=== PATIENT | female | born 1965 | race Caucasian/White ===

== ENCOUNTER 2016-06-21 00:37 | Emergency (ER) | payer BC, MEDICAID ==
[2016-06-21] MEDS ORDERED: Nitroglycerin 2% Oint 1 GM UD Packet TOP ONE (00:54)
[2016-06-21] MEDS ORDERED: Nitroglycerin 0.4 MG Tab.SL SL ONE (00:55)
[2016-06-21 01:16] LABS: CHLORIDE,CL 106 mmol/L (98-110); SODIUM,NA 140 mmol/L (136-146)
[2016-06-21] MEDS ORDERED: Morphine 4 MG/ML Syringe IVPUSH ONE (01:55)
[2016-06-21] MEDS ORDERED: Morphine 4 MG/ML Syringe ONE (02:00)
--- NOTE | 2016-06-21 02:07 | EDM.PDOC ---
ED HISTORY OF PRESENT ILLNESS - General Chief Complaint: Chest Pain Stated Complaint: CHEST PAIN Time Seen by Provider: 06/21/16 02:03 Source of Information: Reports: Patient, Family, RN - History of Present Illness INITIAL COMMENTS - FREE TEXT/NARRATIVE: About 9 PM she received a "disturbing phone call". Thereafter she developed some chest pain. She has a smokers cough. She has no increase in her usual cough. He has a feeling of acid irritation the back of her throat. - Related Data Allergies/ADRs: Allergies Allergy/AdvReac Type Severity Reaction Status Date / Time iodine Allergy Hives Verified 06/21/16 00:52 latex Allergy Irritabilit Verified 06/21/16 00:52 y Home Meds: Home Meds Levothyroxine 50 mcg PO DAILY 08/26/13 [History] Past Medical History HEENT History: Reports: None Cardiovascular History: Reports: None. 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: Musculoskeletal History: Reports: None Neurological History: Reports: Headaches, chronic, Migraines Psychiatric History: Reports: None Hematologic History: Reports: None Immunologic History: Reports: Other (see below) Other Immunologic History: Chemo 2006 Oncologic (Cancer) History: Reports: Hodgkin's Lymphoma Dermatologic History: Reports: None - Infectious Disease History Infectious Disease History: Reports: Chicken pox, Shingles - Past Surgical History HEENT Surgical History: Reports: None Cardiovascular Surgical History: Reports: None Female Surgical History: Reports: section Musculoskeletal Surgical History: Reports: None Social & Family History - Tobacco Use Smoking Status *Q: Current Every Day Smoker Years of Tobacco use: 37 Packs/Tins Daily: 0.1 Second Hand Smoke Exposure: Yes - Caffeine Use Caffeine Use: Reports: Coffee - Alcohol Use Days Per Week of Alcohol Use: 7 Number of Drinks Per Day: 2 Total Drinks Per Week: 14 - Recreational Drug Use Recreational Drug Use: No ED ROS GENERAL - Review of Systems Review Of Systems: See Below Constitutional: Denies: fever, chills Cardiovascular: Reports: Chest pain GI/Abdominal: Denies: Abdominal pain, Hematemesis, Hematochezia ED EXAM, GENERAL - Physical Exam Exam: See Below Free Text/Narrative:: She is alert she is slightly anxious in appearance neck is supple lungs clear to auscultation left anterior and left lateral chest wall tenderness slight anterior sternal tenderness heart regular rate and rhythm without murmur electrocardiogram shows normal sinus rhythm without any evidence of acute myocardial ischemia. No ankle edema. Abdomen is nontender. Normal mental status. Course - Vital Signs Last Recorded V/S: Last Vital Signs Temp 97.8 F 06/21/16 00:50 Pulse 65 06/21/16 01:53 Resp 16 06/21/16 01:53 BP 113/74 06/21/16 01:53 Pulse Ox 99 06/21/16 01:53 - Orders/Labs/Meds Orders: Active Orders 24 hr Category Date Time Status EKG 12 Lead [EKG Documentation Completion] [RC] STAT Care 06/21/16 00:48 Active Chest 1V Frontal [CR] Stat Exams 06/21/16 00:50 Taken Labs: Laboratory Tests 06/21/16 06/21/16 06/21/16 Range/Units 00:45 00:45 00:45 WBC 8.72 (4.0-11.0) K/uL RBC 4.80 (4.30-5.90) M/uL Hgb 13.8 (12.0-16.0) g/dL Hct 41.9 (36.0-46.0) % MCV 87.3 (80.0-98.0) fL MCH 28.8 (27.0-32.0) pg MCHC 32.9 (31.0-37.0) g/dL RDW Std Deviation 44.5 (28.0-62.0) fl RDW Coeff of Shweta 14 (11.0-15.0) % Plt Count 237 (150-400) K/uL MPV 9.60 (7.40-12.00) fL Neut % (Auto) 49.3 (48.0-80.0) % Lymph % (Auto) 39.7 (16.0-40.0) % [place] % (Auto) 7.5 (0.0-15.0) % Eos % (Auto) 3.3 (0.0-7.0) % Baso % (Auto) 0.2 (0.0-1.5) % Neut # 4.3 (1.4-5.7) K/uL Lymph # 3.5 H (0.6-2.4) K/uL [place] # 0.7 (0.0-0.8) K/uL Eos # 0.3 (0.0-0.7) K/uL Baso # 0.0 (0.0-0.1) K/uL Nucleated RBC % 0.0 /100WBC Nucleated RBCs # 0 K/uL Sodium 140 (136-146) mmol/L Potassium 4.1 (3.5-5.1) mmol/L Chloride 106 (98-110) mmol/L Carbon Dioxide 26 (21-31) mmol/L BUN 13 (6.0-23.0) mg/dL Creatinine 0.8 (0.6-1.5) mg/dL Est Cr Clr Drug Dosing 71.84 mL/min Estimated GFR (MDRD) > 60.0 ml/min Glucose 83 (60-110) mg/dL Calcium 9.2 (8.8-10.8) mg/dL Total Bilirubin 0.2 (0.1-1.5) mg/dL AST 13 (5-40) IU/L ALT 10 (8-54) IU/L Alkaline Phosphatase 65 (40-150) CK-MB (CK-2) 0.8 (0-6.6) ng/ml Troponin I < 0.10 (0.0-0.29) NG/ML Total Protein 7.4 (6.0-8.0) g/dL Albumin 4.1 (3.5-5.0) g/dL Globulin 3.3 (2.0-3.5) g/dL Albumin/Globulin Ratio 1.2 L (1.3-2.8) Meds: Medications Discontinued Medications Generic Name Dose Route Start Last Admin Trade Name Tg PRN Reason Stop Dose Admin Morphine Sulfate 4 mg 06/21/16 01:55 Morphine IVPUSH 06/21/16 01:56 ONETIME ONE Morphine Sulfate Confirm 06/21/16 02:00 Morphine Administered 06/21/16 02:01 Dose 4 mg .ROUTE .STK-MED ONE Nitroglycerin 1 gm 06/21/16 00:54 06/21/16 00:59 Nitro-Bid 2% TOP 06/21/16 00:55 1 gm ONETIME ONE Administration Nitroglycerin 0.4 mg 06/21/16 00:55 06/21/16 00:59 Nitrostat SL 06/21/16 00:56 0.4 mg ONETIME ONE Administration Departure - Departure Time of Disposition: 02:06 Disposition: Home, Self-Care 01 Condition: good Clinical Impression: Chest pain Forms: ED Department Discharge Additional Instructions: I advised her that I think her chest pain is likely noncardiac. It may be in part related to having some stress tonight. It might be related to some acid reflux or gastroesophageal reflux. I did recommend that she stay on hospital as I advised that I am not absolutely certain that she does not have heart disease. We discussed the fact that some people have a heart attack without typical symptoms. She verbalized understanding but insisted on going home. I recommended 81 mg of aspirin daily as a precaution. Followup as needed. I also recommended protonic 40 mg daily as a precaution for acid reflux. Followup with her primary care physician. - My Orders Last 24 Hours: My Active Orders 06/21/16 00:48 EKG 12 Lead [EKG Documentation Completion] [RC] STAT 06/21/16 00:50 Chest 1V Frontal [CR] Stat - Assessment/Plan Last 24 Hours: My Active Orders 06/21/16 00:48 EKG 12 Lead [EKG Documentation Completion] [RC] STAT 06/21/16 00:50 Chest 1V Frontal [CR] Stat
[2016-06-21] MEDS ORDERED: Pantoprazole 40 MG Tab.CR PO SCH (02:15)
[2016-06-21 02:22] VITALS: BP 118/60
--- NOTE | 2016-06-21 15:12 | CR ---
EXAM DATE: 06/21/16 PATIENT'S AGE: 51 Patient: JOSEF DELACRUZ Facility: [place], [place] Site . Site : 1965 Study: XRay Chest [id number]/1/2017 1:12:07 AM Ordering Physician: Doctor Montes Final Report: INDICATION: pain CHEST, ONE VIEW An AP radiograph of the chest was performed. Comparison: 02/28/2015. The lungs appear clear of acute infiltrate and no pleural effusions are identified. The cardiomediastinal silhouette and pulmonary vasculature appear normal, as do the visualized bones. IMPRESSION: No acute intrathoracic abnormality identified. AIDEN GOOD MD [facility] Dictated by: Kwasi Good MD @ 06/21/2016 01:15:38 (Electronic Signature) Report Signed by Proxy and Original Signed Document filed in the Medical Record. MTDD
== END 2016-06-21 02:20 | disposition home or self-care (01) ==
LOC: MW.ED 00:37
DX: R07.9 Chest pain, unspecified (principal); R05 Cough; L08.9 Local infection of the skin and subcutaneous tissue, unspecified; F17.210 Nicotine dependence, cigarettes, uncomplicated; Z88.8 Allergy status to other drugs, medicaments and biological substances; Z79.899 Other long term (current) drug therapy
CPT/HCPCS: 36415; 71010; 80053; 82553; 84484; 85025; 93005; 96374; 99285; A9270; J2270; 99283

== ENCOUNTER → 2016-08-11 | Outpatient (CLI) | payer OTHER ==
--- NOTE | 2016-08-11 15:17 | CR ---
EXAMINATION: Left hip HISTORY: Injury COMPARISON: None TECHNIQUE: 2 views FINDINGS/IMPRESSION: There is no acute osseous abnormality, dislocation, or fracture identified. Bon e mineralization and joint spaces appear grossly preserved.
--- NOTE | 2016-08-11 15:19 | CR ---
EXAMINATION: Left knee HISTORY: Injury COMPARISON: None TECHNIQUE: 2 views FINDINGS/IMPRESSION: There is no acute osseous abnormality, dislocation, or fracture identified. Bon e mineralization and joint spaces appear normal. No soft tissue swelling or joint effusion.
== END ==
LOC: MW.CHFP 11:02
PROVIDERS: ATTEND Physician Assistant
DX: S89.92XA Unspecified injury of left lower leg, initial encounter (principal); S79.912A Unspecified injury of left hip, initial encounter
CPT/HCPCS: 73502-26-LT; 73502-LT; 73560-26-LT; 73560-LT

== ENCOUNTER 2016-12-15 07:07 | Day surgery (SDC) | payer BC ==
[~2016-12-15 07:07] MED LIST: Lactated Ringers 1,000 ML IV SCH
[2016-12-15] MEDS ORDERED: Bupivacaine Liposome 1.3% 20 ML SDV INJECT ONE (07:08)
[2016-12-15] MEDS ORDERED: Rocuronium 10 MG/ML 10 ML Syringe ONE (07:12)
[2016-12-15] MEDS ORDERED: Midazolam 1 MG/ML 2 ML SDV ONE (07:12)
[2016-12-15] MEDS ORDERED: Lidocaine 2% 5 ML SDV ONE (07:12)
[2016-12-15] MEDS ORDERED: fentaNYL 100 MCG/2 ML SDV ONE ×2 (07:12→10:54)
[2016-12-15] MEDS ORDERED: Succinylcholine/Normal Saline 200 MG/10 ML Syringe ONE (07:12)
[2016-12-15] MEDS ORDERED: Propofol 200 MG/20 ML SDV ONE (07:12)
--- NOTE | 2016-12-15 07:49 | PCM.PREANE ---
Preanesthetic Assessment - Anesthesia/Transfusion/Family Hx Anesthesia History: Prior Anesthesia Without Reaction Family History of Anesthesia Reaction: No Transfusion History: Prior Transfusion Without Reaction - Review of Systems General: No Symptoms Pulmonary: No Symptoms Cardiovascular: No Symptoms Gastrointestinal: No Symptoms Neurological: No Symptoms Other: Reports: None - Physical Assessment NPO Status Date: 12/14/16 Height: 1.63 m Weight: 63.049 kg ASA Class: 2 Mental Status: Alert & Oriented x3 Airway Class: Mallampati = 2 Dentition: Reports: Normal Dentition ROM/Head Extension: Full Lungs: Clear to Auscultation, Normal Respiratory Effort Cardiovascular: Regular Rate, Regular Rhythm - Allergies Allergies/Adverse Reactions: Allergies Allergy/AdvReac Type Severity Reaction Status Date / Time iodine Allergy Hives Verified 06/21/16 00:52 latex Allergy Irritabilit Verified 06/21/16 00:52 y naproxen Allergy Edema Verified 12/11/16 10:10 - Acknowledgements Anesthesia Type Planned: General Anesthesia Pt an Appropriate Candidate for the Planned Anesthesia: Yes Alternatives and Risks of Anesthesia Discussed w Pt/Guardian: Yes Additional Comments: pmh: asthma (inactive), smoker, seasonal allergies PreAnesthesia Questionnaire HEENT History: Reports: Allergic Rhinitis, Other (See Below) Other HEENT History: wears glasses Cardiovascular History: Reports: None Respiratory History: Reports: Asthma, Pneumothorax Other Respiratory History: hx spontaneous pneumothorax Gastrointestinal History: Reports: None Genitourinary History: Reports: None 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, Musculoskeletal History: Reports: None Neurological History: Reports: Concussion, Migraines Psychiatric History: Reports: None Endocrine/Metabolic History: Reports: Hypothyroidism Hematologic History: Reports: Anemia, Blood Transfusion(s) Immunologic History: Oncologic (Cancer) History: Reports: Breast, Hodgkin's Lymphoma, Other (See Below) Other Oncologic History: chemo for hodgkins lymphoma in 2005 Dermatologic History: Reports: None - Infectious Disease History Infectious Disease History: Reports: Chicken Pox, Shingles - Past Surgical History Head Surgeries/Procedures: Reports: None HEENT Surgical History: Reports: None Cardiovascular Surgical History: Reports: None Female Surgical History: Reports: Section Other Female Surgeries/Procedures: laparoscopy x3 for removal of uterine fibroids Musculoskeletal Surgical History: Reports: None - SUBSTANCE USE Smoking Status *Q: Current Every Day Smoker Tobacco Use Within Last Twelve Months: Cigarettes Second Hand Smoke Exposure: Yes Days Per Week of Alcohol Use: 7 Number of Drinks Per Day: 2 Total Drinks Per Week: 14 Recreational Drug Use History: No - HOME MEDS Home Medications: Home Meds Levothyroxine 50 mcg PO DAILY 08/26/13 [History] Ascorbate Calcium [Vitamin C] 1,000 mg PO DAILY 12/11/16 [History] Cromolyn Sodium [Nasalcrom] 2 spray NASBOTH DAILY 12/11/16 [History] Loratadine/Pseudoephedrine [Wal-Itin D 12 Hour Tablet] 10 mg PO DAILY 12/11/16 [ History] Olopatadine [Patanol 0.1% Ophth Soln] 1 drop EYEBOTH DAILY 12/11/16 [History] Simethicone [Gas Relief] 180 mg PO ASDIRECTED PRN 12/11/16 [History] Vitamin B Complex 1 tab PO ASDIRECTED 12/11/16 [History] - CURRENT (IN HOUSE) MEDS Current Meds: Current Medications Hydrocodone Bitart/Acetaminophen ([place] 325-5 Mg) 1 tab PO Q4H PRN PRN Reason: Pain Bupivacaine HCl/Epinephrine Bitart (Marcaine 0.25%/Epinephrine 1:200,000) 30 ml INJECT ONETIME ONE Stop: 12/15/16 08:01 Cephalexin (Keflex) 500 mg PO Q6HR MARIA Diphenhydramine HCl (Benadryl) 25 mg PO Q6H PRN PRN Reason: Itching Lactated Ringer's (Ringers, Lactated) 1,000 mls @ 125 mls/hr IV ASDIRECTED MARIA Cefazolin Sodium/Dextrose 2 gm (/ Premix) 50 mls @ 100 mls/hr IV ONETIME ONE Stop: 12/15/16 09:29 Morphine Sulfate (Morphine) 1 mg IVPUSH Q2H MARIA Ondansetron HCl (Zofran Odt) 4 mg PO Q6H PRN PRN Reason: Nausea/Vomiting Ondansetron HCl (Zofran) 4 mg IVPUSH Q6H PRN PRN Reason: Nausea/Vomiting Discontinued Medications Fentanyl (Sublimaze) Confirm Administered Dose 100 mcg .ROUTE .STK-MED ONE Stop: 12/15/16 07:13 Lidocaine (Xylocaine-Mpf 2%) Confirm Administered Dose 5 ml .ROUTE .STK-MED ONE Stop: 12/15/16 07:13 Midazolam HCl (Versed 1 Mg/Ml) Confirm Administered Dose 2 mg .ROUTE .STK-MED ONE Stop: 12/15/16 07:13 Propofol (Diprivan 20 Ml) Confirm Administered Dose 200 mg .ROUTE .STK-MED ONE Stop: 12/15/16 07:13 Rocuronium [place] (Zemuron) Confirm Administered Dose 100 mg .ROUTE .STK-MED ONE Stop: 12/15/16 07:13 Succinylcholine Chloride (Succinylcholine In Ns Pf) Confirm Administered Dose 200 mg .ROUTE .STK-MED ONE Stop: 12/15/16 07:13
[2016-12-15] MEDS ORDERED: Ondansetron 4 MG Tab.DIS PO PRN (08:00)
[2016-12-15] MEDS ORDERED: Bupivacaine 0.25%/EPINEPHrine 1:200,000 10 ML SDV INJECT ONE (08:00)
[2016-12-15] MEDS ORDERED: ceFAZolin 2 GM in Premix Bag 1 BAG IV ONE (09:00)
[2016-12-15] MEDS ORDERED: Ondansetron 4 MG/2 ML SDV IVPUSH PRN (09:00)
[2016-12-15] MEDS ORDERED: EPINEPHrine 1 MG/ML SDV ONE (09:44)
[2016-12-15] MEDS ORDERED: ceFAZolin 1 GM Vial ONE (09:57)
[2016-12-15] MEDS ORDERED: Gentamicin 40 MG/ML 2 ML Vial ONE (09:57)
[2016-12-15] MEDS ORDERED: Dexamethasone 4 MG/ML 5 ML MDV ONE (10:33)
[2016-12-15] MEDS ORDERED: HYDROmorphone 2 MG/ML Syringe ONE (10:34)
[2016-12-15] MEDS ORDERED: Bupivacaine 0.25%/EPINEPHrine 1:200,000 10 ML SDV ONE (10:45)
[2016-12-15] MEDS ORDERED: fentaNYL 100 MCG/2 ML SDV IVPUSH PRN (10:50)
[2016-12-15] MEDS ORDERED: HYDROmorphone 2 MG/ML Syringe IVPUSH PRN (10:51)
--- NOTE | 2016-12-15 11:25 | PCM.OPNOTE ---
- General Post-Op/Procedure Note Date of Surgery/Procedure: 12/15/16 Operative Procedure(s): Right modified radical mastectomy w/ right axillary SLND Pre Op Diagnosis: Biopsy proven Ca right breast Post-Op Diagnosis: Same Anesthesia Technique: General ET Tube (ASA III) Primary Surgeon: Leland Jimenez Secondary Surgeon: Susi Fontanez [employer]: Vivian Escobar (As is no weight) Condition: Good Free Text/Narrative:: Dictation [id number]
--- NOTE | 2016-12-15 11:41 | NM ---
EXAMINATION: Right breast lymphoscintigraphy HISTORY: Malignant neoplasm TECHNIQUE: The procedure was discussed with the patient. The right periareolar region was sterilely p repped. A total of 8 intradermal injections were performed along the areolar margin within a clock fa ce of the right breast. FINDINGS: There is a small focus of radiotracer uptake noted within the upper outer right breast at t he approximate 11:00 position near the injection margin, possibly representing intramammary lymph nod e. There is also a single axillary node noted as well. IMPRESSION: Successful right breast lymphoscintigraphy.
[2016-12-15] MEDS ORDERED: Ondansetron 4 MG/2 ML SDV ONE (12:00)
[2016-12-15] MEDS ORDERED: Midazolam 1 MG/ML 2 ML SDV IVPUSH ONE (13:23)
--- NOTE | 2016-12-15 13:54 | PCM.POSTAN ---
POST ANESTHESIA ASSESSMENT - MENTAL STATUS Mental Status: Alert, Oriented - RESPIRATORY Respiratory Status: Respiratory Rate WNL, Airway Patent, O2 Saturation Stable - CARDIOVASCULAR CV Status: Pulse Rate WNL, Blood Pressure Stable - GASTROINTESTINAL GI Status: No Symptoms - POST OP HYDRATION Hydration Status: Adequate & Stable
[2016-12-15] MEDS ORDERED: diphenhydrAMINE 50 MG/ML SDV IVPUSH PRN (14:05)
[2016-12-15] MEDS ORDERED: LORazepam 0.5 MG Tab PO PRN (14:48)
--- NOTE | 2016-12-15 14:48 | PCM.OPNOTE ---
- General Post-Op/Procedure Note Date of Surgery/Procedure: 12/15/16 Operative Procedure(s): right breast reconstruction with sillicone implant - submuscular with allomax 360cc [place] Pre Op Diagnosis: right breast cancer Post-Op Diagnosis: Same Anesthesia Technique: General ET Tube, Local Primary Surgeon: Susi Fontanez Health Information Provider: Meghan Marques Complications: None Condition: Good Free Text/Narrative:: Intake & Output 12/14/16 12/15/16 12/15/16 23:59 07:59 15:59 Intake Total 1899 Balance 1899
[2016-12-15] MEDS: Morphine 2 MG/ML Syringe IVPUSH SCH ×2 (15:07→15:11)
[2016-12-15] MEDS: Cephalexin 500 MG Cap PO SCH ×3 (15:11→23:57)
[2016-12-15] MEDS ORDERED: diphenhydrAMINE 25 MG Cap PO PRN (16:00)
[2016-12-15] MEDS: Morphine 2 MG/ML Syringe IVPUSH PRN ×2 (17:40→20:14)
[2016-12-15] MEDS: Cyclobenzaprine 5 MG Tab PO SCH (20:38)
[2016-12-16] MEDS: Acetaminophen/HYDROcodone 325-5 MG Tab PO PRN ×2 (00:01→04:07)
--- NOTE | 2016-12-16 03:24 | PCM48HPAN ---
Post Anesthesia Note - EVALUATION WITHIN 48HRS OF ANESTHETIC Vital Signs in Normal Range: Yes Patient Participated in Evaluation: Yes Respiratory Function Stable: Yes Airway Patent: Yes Cardiovascular Function Stable: Yes Hydration Status Stable: Yes Pain Control Satisfactory: Yes (On Oral pain medication per surgeon) Nausea and Vomiting Control Satisfactory: Yes Mental Status Recovered: Yes
[2016-12-16] MEDS: Cephalexin 500 MG Cap PO SCH (05:43)
[2016-12-16] MEDS: Cyclobenzaprine 5 MG Tab PO SCH (08:21)
--- NOTE | 2016-12-16 08:29 | PCM.SURGPN ---
- General Info Date of Service: 12/16/16 POD#: 1 Post-Op Diagnosis: Ca of the right breast, s/p nipple sparing mastectomy with reconstruction, right axillary SLND Functional Status: Reports: Pain Controlled, Tolerating Diet, Ambulating - Review of Systems General: Reports: Fever (Tmax 99.3) HEENT: Reports: No Symptoms Pulmonary: Denies: Shortness of Breath Cardiovascular: Denies: Chest Pain Gastrointestinal: Reports: No Symptoms Genitourinary: Reports: No Symptoms Musculoskeletal: Reports: No Symptoms Skin: Reports: No Symptoms Neurological: Reports: No Symptoms Psychiatric: Reports: No Symptoms - Patient Data Vitals - Most Recent: Last Vital Signs Temp 99.3 F 12/16/16 04:00 Pulse 69 12/16/16 04:00 Resp 12 12/16/16 04:00 BP 107/52 L 12/16/16 04:00 Pulse Ox 94 L 12/16/16 06:52 Weight - Most Recent: 139 lb I&O - Last 24 Hours: Intake & Output 12/15/16 12/16/16 12/16/16 19:59 03:59 11:59 Intake Total 2550 1050 Output Total 510 1228 Balance 2040 -178 Med Orders - Current: Current Medications Hydrocodone Bitart/Acetaminophen ([place] 325-5 Mg) 1 tab PO Q4H PRN PRN Reason: Pain Last Admin: 12/16/16 04:07 Dose: 1 tab Cephalexin (Keflex) 500 mg PO Q6HR [facility] Last Admin: 12/16/16 05:43 Dose: 500 mg Cyclobenzaprine HCl (Flexeril) 5 mg PO BID [facility] Last Admin: 12/16/16 08:21 Dose: 5 mg Diphenhydramine HCl (Benadryl) 25 mg PO Q6H PRN PRN Reason: Itching Last Admin: 12/15/16 14:10 Dose: 25 mg Diphenhydramine HCl (Benadryl) 25 mg IVPUSH Q4H PRN PRN Reason: Itching Lorazepam (Ativan) 0.5 mg PO Q8H PRN PRN Reason: Agitation Morphine Sulfate (Morphine) 1 mg IVPUSH Q2H PRN PRN Reason: Pain Last Admin: 12/15/16 20:14 Dose: 1 mg Ondansetron HCl (Zofran Odt) 4 mg PO Q6H PRN PRN Reason: Nausea/Vomiting Ondansetron HCl (Zofran) 4 mg IVPUSH Q6H PRN PRN Reason: Nausea/Vomiting Discontinued Medications Bupivacaine HCl/Epinephrine Bitart (Marcaine 0.25%/Epinephrine 1:200,000) 30 ml INJECT ONETIME ONE Stop: 12/15/16 08:01 Last Admin: 12/15/16 15:07 Dose: Not Given Bupivacaine HCl/Epinephrine Bitart (Marcaine 0.25%/Epinephrine 1:200,000) Confirm Administered Dose 40 ml .ROUTE .STK-MED ONE Stop: 12/15/16 10:46 Bupivacaine Liposome (Exparel) 20 ml INJECT .STK-MED ONE Stop: 12/15/16 07:09 Cefazolin Sodium (Ancef) Confirm Administered Dose 1 gm .ROUTE .STK-MED ONE Stop: 12/15/16 09:58 Dexamethasone (Dexamethasone) Confirm Administered Dose 20 mg .ROUTE .STK-MED ONE Stop: 12/15/16 10:34 Epinephrine HCl (Adrenalin 1:1000) Confirm Administered Dose 2 mg .ROUTE .STK- MED ONE Stop: 12/15/16 09:45 Fentanyl (Sublimaze) Confirm Administered Dose 100 mcg .ROUTE .STK-MED ONE Stop: 12/15/16 07:13 Fentanyl (Sublimaze) 50 - 100 mcg IVPUSH Q5M PRN PRN Reason: Pain Stop: 12/15/16 15:51 Last Admin: 12/15/16 13:11 Dose: 50 mcg Fentanyl (Sublimaze) Confirm Administered Dose 100 mcg .ROUTE .STK-MED ONE Stop: 12/15/16 10:55 Gentamicin Sulfate (Gentamicin) Confirm Administered Dose 80 mg .ROUTE .STK-MED ONE Stop: 12/15/16 09:58 Hydromorphone HCl (Dilaudid) Confirm Administered Dose 2 mg .ROUTE .STK-MED ONE Stop: 12/15/16 10:35 Hydromorphone HCl (Dilaudid) 1 mg IVPUSH Q2H PRN PRN Reason: Pain Stop: 12/15/16 14:30 Lactated Ringer's (Ringers, Lactated) 1,000 mls @ 125 mls/hr IV ASDIRECTED [facility] Last Admin: 12/15/16 14:24 Dose: 125 mls/hr Cefazolin Sodium/Dextrose 2 gm (/ Premix) 50 mls @ 100 mls/hr IV ONETIME ONE Stop: 12/15/16 09:29 Last Admin: 12/15/16 15:07 Dose: Not Given Acetaminophen (Ofirmev) Confirm Administered Dose 100 mls @ as directed IV .STK- MED ONE Stop: 12/15/16 09:48 Lidocaine (Xylocaine-Mpf 2%) Confirm Administered Dose 5 ml .ROUTE .STK-MED ONE Stop: 12/15/16 07:13 Midazolam HCl (Versed 1 Mg/Ml) Confirm Administered Dose 2 mg .ROUTE .STK-MED ONE Stop: 12/15/16 07:13 Midazolam HCl (Versed 1 Mg/Ml) 2 mg IVPUSH ONETIME ONE Stop: 12/15/16 13:24 Last Admin: 12/15/16 13:40 Dose: 1 mg Morphine Sulfate (Morphine) 1 mg IVPUSH Q2H MARIA Last Admin: 12/15/16 15:11 Dose: 1 mg Ondansetron HCl (Zofran) Confirm Administered Dose 4 mg .ROUTE .STK-MED ONE Stop: 12/15/16 12:01 Propofol (Diprivan 20 Ml) Confirm Administered Dose 200 mg .ROUTE .STK-MED ONE Stop: 12/15/16 07:13 Rocuronium [place] (Zemuron) Confirm Administered Dose 100 mg .ROUTE .STK-MED ONE Stop: 12/15/16 07:13 Succinylcholine Chloride (Succinylcholine In Ns Pf) Confirm Administered Dose 200 mg .ROUTE .STK-MED ONE Stop: 12/15/16 07:13 - Exam Wound/Incisions: Dressing Dry and Intact, Other (Left dressings intact for Dr. Fontanez. Superior flap viable.) Quality Assessment: No: Supplemental Oxygen General: Alert, Oriented, Cooperative, Mild Distress HEENT: Pupils Equal, Pupils Reactive Neck: Supple Lungs: Clear to Auscultation, Normal Respiratory Effort Cardiovascular: Regular Rate, Regular Rhythm GI/Abdominal Exam: Normal Bowel Sounds, Soft, Non-Tender Extremities: Normal Inspection Skin: Warm, Dry, Intact Neurological: No New Focal Deficit Psy/Mental Status: Alert, Normal Affect - Problem List & Annotations (1) Malignant neoplasm of right breast SNOMED Code(s): 181679896, 028486701 Code(s): C50.911 - MALIGNANT NEOPLASM OF UNSP SITE OF RIGHT FEMALE BREAST Status: Acute Priority: High Current Visit: Yes - Problem List Review Problem List Initiated/Reviewed/Updated: Yes - My Orders Last 24 Hours: Active Orders 24 hr Category Date Time Status Patient Status [ADT] Routine ADT 12/15/16 13:00 Active Ambulate [RC] ASDIRECTED Care 12/15/16 16:00 Active Bradycardia-Neuroaxis [employer] [RC] ROUTINE Care 12/15/16 10:50 Active Communication Order [RC] ROUTINE Care 12/15/16 07:30 Active Communication Order [RC] ROUTINE Care 12/15/16 20:30 Active Drain Management [RC] ASDIRECTED Care 12/15/16 16:00 Active Hypertension-Neuroaxis [employer] [RC] ROUTINE Care 12/15/16 10:50 Active Hypotension-Neuroaxis [employer] [RC] ROUTINE Care 12/15/16 10:50 Active Occlusive Dressing [Wound Care] [RC] DAILY Care 12/15/16 14:29 Active Oxygen Therapy [RC] ASDIRECTED Care 12/15/16 10:50 Active Regular Diet [DIET] Diet 12/15/16 Dinner Active HCG QUALITATIVE,URINE [URCHEM] Routine Lab 12/15/16 08:00 Uncollected Acetaminophen/HYDROcodone [[place] 325-5 MG] Med 12/15/16 08:00 Active 1 tab PO Q4H PRN Cephalexin [Keflex] Med 12/15/16 16:00 Active 500 mg PO Q6HR Cyclobenzaprine [Flexeril] Med 12/15/16 21:00 Active 5 mg PO BID LORazepam [Ativan] Med 12/15/16 14:48 Active 0.5 mg PO Q8H PRN Morphine Med 12/15/16 16:45 Active 1 mg IVPUSH Q2H PRN Ondansetron [Zofran ODT] Med 12/15/16 08:00 Active 4 mg PO Q6H PRN Ondansetron [Zofran] Med 12/15/16 09:00 Active 4 mg IVPUSH Q6H PRN diphenhydrAMINE [Benadryl] Med 12/15/16 14:05 Active 25 mg IVPUSH Q4H PRN diphenhydrAMINE [Benadryl] Med 12/15/16 16:00 Active 25 mg PO Q6H PRN Medication Orders Hydrocodone Bitart/Acetaminophen ([place] 325-5 Mg) 1 tab PO Q4H PRN PRN Reason: Pain Last Admin: 12/16/16 04:07 Dose: 1 tab Admin: 12/16/16 00:01 Dose: 1 tab Cephalexin (Keflex) 500 mg PO Q6HR [facility] Last Admin: 12/16/16 05:43 Dose: 500 mg Admin: 12/15/16 23:57 Dose: 500 mg Admin: 12/15/16 19:27 Dose: 500 mg Admin: 12/15/16 15:11 Dose: 500 mg Cyclobenzaprine HCl (Flexeril) 5 mg PO BID [facility] Last Admin: 12/16/16 08:21 Dose: 5 mg Admin: 12/15/16 20:38 Dose: 5 mg Diphenhydramine HCl (Benadryl) 25 mg PO Q6H PRN PRN Reason: Itching Last Admin: 12/15/16 14:10 Dose: 25 mg Diphenhydramine HCl (Benadryl) 25 mg IVPUSH Q4H PRN PRN Reason: Itching Lorazepam (Ativan) 0.5 mg PO Q8H PRN PRN Reason: Agitation Morphine Sulfate (Morphine) 1 mg IVPUSH Q2H PRN PRN Reason: Pain Last Admin: 12/15/16 20:14 Dose: 1 mg Admin: 12/15/16 17:40 Dose: 1 mg Ondansetron HCl (Zofran Odt) 4 mg PO Q6H PRN PRN Reason: Nausea/Vomiting Ondansetron HCl (Zofran) 4 mg IVPUSH Q6H PRN PRN Reason: Nausea/Vomiting - Assessment Assessment (Free Text/Narrative):: Patient is doing quite well this morning. She is much more comfortable than last night. Unable to lay flat. No N/V. Tmax 99.3. Superior flap looks good. Did not open draw or take dressings down. - Plan Plan (Free Text/Narrative):: Will defer to Dr. Fatoumata Fontanez. I would like to see patient post-op in the office when she is scheduled to see Dr. Fontanez.
--- NOTE | 2016-12-16 08:49 | PCM.PN ---
- General Info Date of Service: 12/16/16 Admission Dx/Problem (Free Text): post op day 1 s/p reconstruction of the right breast with implant and allomax. Doing well. Pain as expected but tolerating po and meds controlling well. Ready to go home. Subjective Update: as above Functional Status: Reports: Pain Controlled, Tolerating Diet, Ambulating, Urinating. Denies: New Symptoms - Review of Systems General: Reports: No Symptoms HEENT: Reports: No Symptoms Pulmonary: Reports: No Symptoms Cardiovascular: Reports: No Symptoms Musculoskeletal: Reports: No Symptoms Skin: Reports: Bruising (mild over right upper outer quadrant) Neurological: Reports: No Symptoms Psychiatric: Reports: No Symptoms - Patient Data Vitals - Most Recent: Last Vital Signs Temp 99.3 F 12/16/16 04:00 Pulse 69 12/16/16 04:00 Resp 12 12/16/16 04:00 BP 107/52 L 12/16/16 04:00 Pulse Ox 94 L 12/16/16 06:52 Weight - Most Recent: 139 lb I&O - Last 24 Hours: Intake & Output 12/15/16 12/16/16 12/16/16 23:59 07:59 15:59 Intake Total 1400 300 Output Total 510 1228 Balance 890 -928 Med Orders - Current: Current Medications Hydrocodone Bitart/Acetaminophen (Bacliff 325-5 Mg) 1 tab PO Q4H PRN PRN Reason: Pain Last Admin: 12/16/16 04:07 Dose: 1 tab Cephalexin (Keflex) 500 mg PO Q6HR [facility] Last Admin: 12/16/16 05:43 Dose: 500 mg Cyclobenzaprine HCl (Flexeril) 5 mg PO BID [facility] Last Admin: 12/16/16 08:21 Dose: 5 mg Diphenhydramine HCl (Benadryl) 25 mg PO Q6H PRN PRN Reason: Itching Last Admin: 12/15/16 14:10 Dose: 25 mg Diphenhydramine HCl (Benadryl) 25 mg IVPUSH Q4H PRN PRN Reason: Itching Lorazepam (Ativan) 0.5 mg PO Q8H PRN PRN Reason: Agitation Morphine Sulfate (Morphine) 1 mg IVPUSH Q2H PRN PRN Reason: Pain Last Admin: 12/15/16 20:14 Dose: 1 mg Ondansetron HCl (Zofran Odt) 4 mg PO Q6H PRN PRN Reason: Nausea/Vomiting Ondansetron HCl (Zofran) 4 mg IVPUSH Q6H PRN PRN Reason: Nausea/Vomiting Discontinued Medications Bupivacaine HCl/Epinephrine Bitart (Marcaine 0.25%/Epinephrine 1:200,000) 30 ml INJECT ONETIME ONE Stop: 12/15/16 08:01 Last Admin: 12/15/16 15:07 Dose: Not Given Bupivacaine HCl/Epinephrine Bitart (Marcaine 0.25%/Epinephrine 1:200,000) Confirm Administered Dose 40 ml .ROUTE .STK-MED ONE Stop: 12/15/16 10:46 Bupivacaine Liposome (Exparel) 20 ml INJECT .STK-MED ONE Stop: 12/15/16 07:09 Cefazolin Sodium (Ancef) Confirm Administered Dose 1 gm .ROUTE .STK-MED ONE Stop: 12/15/16 09:58 Dexamethasone (Dexamethasone) Confirm Administered Dose 20 mg .ROUTE .STK-MED ONE Stop: 12/15/16 10:34 Epinephrine HCl (Adrenalin 1:1000) Confirm Administered Dose 2 mg .ROUTE .STK- MED ONE Stop: 12/15/16 09:45 Fentanyl (Sublimaze) Confirm Administered Dose 100 mcg .ROUTE .STK-MED ONE Stop: 12/15/16 07:13 Fentanyl (Sublimaze) 50 - 100 mcg IVPUSH Q5M PRN PRN Reason: Pain Stop: 12/15/16 15:51 Last Admin: 12/15/16 13:11 Dose: 50 mcg Fentanyl (Sublimaze) Confirm Administered Dose 100 mcg .ROUTE .STK-MED ONE Stop: 12/15/16 10:55 Gentamicin Sulfate (Gentamicin) Confirm Administered Dose 80 mg .ROUTE .STK-MED ONE Stop: 12/15/16 09:58 Hydromorphone HCl (Dilaudid) Confirm Administered Dose 2 mg .ROUTE .STK-MED ONE Stop: 12/15/16 10:35 Hydromorphone HCl (Dilaudid) 1 mg IVPUSH Q2H PRN PRN Reason: Pain Stop: 12/15/16 14:30 Lactated Ringer's (Ringers, Lactated) 1,000 mls @ 125 mls/hr IV ASDIRECTED [facility] Last Admin: 12/15/16 14:24 Dose: 125 mls/hr Cefazolin Sodium/Dextrose 2 gm (/ Premix) 50 mls @ 100 mls/hr IV ONETIME ONE Stop: 12/15/16 09:29 Last Admin: 12/15/16 15:07 Dose: Not Given Acetaminophen (Ofirmev) Confirm Administered Dose 100 mls @ as directed IV .STK- MED ONE Stop: 12/15/16 09:48 Lidocaine (Xylocaine-Mpf 2%) Confirm Administered Dose 5 ml .ROUTE .STK-MED ONE Stop: 12/15/16 07:13 Midazolam HCl (Versed 1 Mg/Ml) Confirm Administered Dose 2 mg .ROUTE .STK-MED ONE Stop: 12/15/16 07:13 Midazolam HCl (Versed 1 Mg/Ml) 2 mg IVPUSH ONETIME ONE Stop: 12/15/16 13:24 Last Admin: 12/15/16 13:40 Dose: 1 mg Morphine Sulfate (Morphine) 1 mg IVPUSH Q2H [facility] Last Admin: 12/15/16 15:11 Dose: 1 mg Ondansetron HCl (Zofran) Confirm Administered Dose 4 mg .ROUTE .STK-MED ONE Stop: 12/15/16 12:01 Propofol (Diprivan 20 Ml) Confirm Administered Dose 200 mg .ROUTE .STK-MED ONE Stop: 12/15/16 07:13 Rocuronium Alcova (Zemuron) Confirm Administered Dose 100 mg .ROUTE .STK-MED ONE Stop: 12/15/16 07:13 Succinylcholine Chloride (Succinylcholine In Ns Pf) Confirm Administered Dose 200 mg .ROUTE .STK-MED ONE Stop: 12/15/16 07:13 - Exam General: Alert, Oriented, Cooperative HEENT: Pupils Reactive, EOMI Lungs: Normal Respiratory Effort Extremities: Other (swelling of the distal right upper extremity, but comming down. No pain. ) Skin: Warm, Dry, Intact, Ecchymosis (right upper outer breast. otherwise looking quite well. ) Wound/Incisions: Healing Well, Dressing Dry and Intact, Drainage ( serosanguinous in the beth drains. ) Neurological: No New Focal Deficit Psy/Mental Status: Alert, Normal Affect, Normal Mood - Problem List Review Problem List Initiated/Reviewed/Updated: Yes - My Orders Last 24 Hours: My Active Orders 12/15/16 08:00 HCG QUALITATIVE,URINE [URCHEM] Routine Acetaminophen/HYDROcodone [Bacliff 325-5 MG] 1 tab PO Q4H PRN Ondansetron [Zofran ODT] 4 mg PO Q6H PRN 12/15/16 09:00 Ondansetron [Zofran] 4 mg IVPUSH Q6H PRN 12/15/16 13:00 Patient Status [ADT] Routine 12/15/16 14:29 Occlusive Dressing [Wound Care] [RC] DAILY 12/15/16 14:48 LORazepam [Ativan] 0.5 mg PO Q8H PRN 12/15/16 16:00 Ambulate [RC] ASDIRECTED Drain Management [RC] ASDIRECTED Cephalexin [Keflex] 500 mg PO Q6HR diphenhydrAMINE [Benadryl] 25 mg PO Q6H PRN 12/15/16 16:45 Morphine 1 mg IVPUSH Q2H PRN 12/15/16 20:30 Communication Order [RC] ROUTINE 12/15/16 21:00 Cyclobenzaprine [Flexeril] 5 mg PO BID 12/15/16 Dinner Regular Diet [DIET] - Plan Plan:: ready for home on norco, keflex and flexeril ok to shower bra for compression drain cares - kelfex while drains in place follow up sunday - will call sunday for appt time
[2016-12-16 08:51] VITALS: BP 117/55
--- NOTE | 2016-12-18 07:30 | OR ---
SURGEON: Leland Jimenez M.D. DATE OF PROCEDURE: 12/15/2016 OPERATION PERFORMED: 1. Right axillary sentinel lymph node biopsy. 2. Right nipple and skin sparing mastectomy. NEUROPSYCHIATRIC AIDE: Susi Fontanez MD. ANESTHESIA: General endotracheal. ASA CLASSIFICATION: III. PREOPERATIVE DIAGNOSIS: Biopsy-proven adenocarcinoma of the right breast with desire for skin sparing mastectomy with reconstruction. POSTOPERATIVE DIAGNOSIS: Biopsy-proven adenocarcinoma of the right breast with desire for skin sparing mastectomy with reconstruction. ESTIMATED BLOOD LOSS: Will be dictated by Dr. Fontanez as well as intraoperative fluid replacement. DESCRIPTION OF PROCEDURE: [facility] and initially went to Radiology for nucleotide injection for the sentinel node biopsy. Following that, she was returned to day surgery and ultimately taken to the operating room. Using the handheld Catie counter, the sentinel lymph node was identified with counts of 1700. Following that and attainment of general endotracheal anesthesia, the surgical site was prepped and draped with both breasts draped into the surgical field. After appropriate draping, our attention was turned to the right axilla. The right axilla was again identified with the Graham counter and a sentinel lymph node site marked. The skin incision was made and deepened through the subcutaneous tissue obtaining hemostasis with the use of electrocautery. The Catie counter had been placed in a sterile Radiology drape and again the sentinel lymph node was identified by counts. Using a combination of electrocautery and sharp dissection, we were able to dissect into the axilla and ultimately feel a sentinel node. This was removed with the use of electrocautery and counts confirmed. The specimen was then sent to Pathology for frozen section and initial report is that the sentinel node is benign. That wound was then packed open with moistened Ray-Catie sponge. The skin incision had been marked by Dr. Fontanez and skin incision was now made beginning laterally to the lateral aspect of the breast and continuing superiorly around the nipple- areolar complex. Dissection was done using electrocautery and carried through the subcutaneous tissue. The breast was then dissected off the chest wall with flaps extending to the inferior border of the clavicle superiorly and medially to the sternal margin laterally to latissimus dorsi and inferiorly to the costal margin. Care was taken not to buttonhole the skin to make the skin flaps too thin. Once appropriate skin flaps had been raised, the breast was dissected away from the chest wall using electrocautery. Bleeding sites were electrocoagulated. Once the breast was entirely removed, this was placed in formalin and will be sent to pathology for permanent sections. At that point, the procedure was turned over to Dr. Fontanez for reconstruction and closure. The patient was hemodynamically stable during my portion of the procedure. Dr. Fontanez will dictate her portion. BECCA / SINGH /[id number]
--- NOTE | 2016-12-18 17:03 | OR ---
SURGEON: GORDON ESTRADA MD DATE OF PROCEDURE: 12/15/2016 RELIEF MASTER: HOLLAND Boogie ANESTHESIA: General ET tube. PREOPERATIVE DIAGNOSIS: Right mastectomy with need for reconstruction POSTOPERATIVE DIAGNOSIS: Same PROCEDURE: Reconstruction of right breast mastectomy site with immediate silicone submuscular breast implant reconstruction with allomax INDICATIONS: Ms. Barbosa is a 51-year-old female with right-sided breast cancer. She was having a mastectomy and sentinel node today with Dr. Jimenez and we were consulted for reconstructive options. Risks and benefits were discussed with her for skin sparing mastectomy and immediate implant reconstruction. Her tumor size and location make her a good candidate for this procedure. She has larger ptotic breasts and thus direct implant reconstruction thought to be possible. She does understand that given her smoking history should there be any compromise of the skin or question of safety, we would proceed with tissue music ministries director placement and subsequent tissue expansion if needed. Risks and benefits of this and alternatives were thoroughly discussed in two separate clinic appointments. She would like to proceed today. Her choice is implant reconstruction and hopefully as few surgeries as possible. Risks were including , but not limited to, bleeding, infection, damage to underlying or overlying structures, possible need for future interventions, and possible scarring. PROCEDURE IN DETAIL: After informed consent was obtained and placed on the chart, the patient was brought to the operating theater and laid in the supine position. I was present and assisted Dr. Jimenez with his portion of the mastectomy and the sentinel node. Once these were completed, the patient's outer drapes were removed and the 2nd layer of drapes was exposed underneath. A new set up was opened and attention was paid to copious irrigation of the right breast. Once adequately irrigated, attention was paid to the skin flap evaluation. There was a significant amount of breast tissue left and the right lower outer breast, and this was excised and sent to pathology. This was approximately at the 9 o'clock position of the breast and the tissue was taken to the subcutaneous plane. The remaining skin flap were evaluated to be adequate resection. Once adequately excised, meticulous hemostasis was obtained and the pocket was again copiously irrigated with sterile water. Attention was then paid to the elevation of the pectoralis muscle. Once adequately released from its inframammary attachments, it was elevated superiorly until complete development of the pocket. Once this was completed, the AlloMax was opened. The 8 x 16 piece (LOT [id number] [id number] [facility] ) was soaked for recommended time in the triple antibiotic solution until pliable. Once adequately prepared, it was placed into the pocket and a 520 mL spacer was placed in the pocket. It was appreciated that this implant spacer was too large; however, this tissue spacer was used to suture the AlloMax in place in appropriate tension. 2-0 PDS sutures were used in [id number] fashion in a pants-over- vest style to secure the AlloMax to the inframammary fold and then the superior sutured to the muscle layer. Once this was completed, the patient was sat up and appropriate contour and ptosis was appreciated. Several tacking stitches at the inframammary fold were used to secure this in place to prevent autodissection on to the abdomen and match the contralateral side. Once this was completed, again the pocket was copiously irrigated with antibiotic solution and the appropriate sized implant was selected. The implant was a [employer] SRM-360 mL silicone implant, product #[id number], serial #[id number]. Once adequately placed in the pocket, several lateral tacking sutures using 2-0 PDS were placed to keep the implant from lateral displacement. The patient was sat up into the seated position and excellent contour was appreciated. The patient was laid back into the supine position and two size seven ANJANA drains were placed, one above and one below the implant pocket, and brought out laterally in a previous scar. These were sutured in place using 3-0 Prolene sutures. The wound bed was evaluated for hemostasis prior to closure. The skin flaps were redraped and closed using deep 3-0 Monocryl stitches for the sparse Alexx's layer, 3-0 Monocryl stitches for the dermal layer, and a running 4-0 subcuticular for the skin. Skin flaps were healthy and viable at the end the case, with minor thinning at the left lower quadrant and right upper quadrant. The axillary incision was then closed for Dr. Jimenez using deep 3-0 Monocryl stitches and a running 4-0 subcuticular for the skin. Once adequately closed, the wounds were dressed with Steri-Strips and fluffs. The patient was then placed in a compression bra and will be maintained in the hospital overnight. All counts and needles were correct at the end the case. The patient tolerated the procedure well. FOLLOWUP INSTRUCTIONS: The patient will be maintained in the hospital overnight for pain control and observation. ARTIS WINTERS /[id number] MTDD
== END 2016-12-16 09:00 | disposition home or self-care (01) ==
LOC: MW.SDS 07:07 → INTOOBSV 14:58 → MW.MS 14:58 → UNDOADMOB 14:58 → MW.MS 14:58 → MW.SDS 12-16 09:00 → UNDODISOB 12-16 09:00
PROVIDERS: ATTEND Plastic Surgery
DX: C50.811 Malignant neoplasm of overlapping sites of right female breast (principal); Z17.0 Estrogen receptor positive status [ER+]; E03.9 Hypothyroidism, unspecified; G43.909 Migraine, unspecified, not intractable, without status migrainosus; F17.210 Nicotine dependence, cigarettes, uncomplicated; J45.909 Unspecified asthma, uncomplicated; Z85.71 Personal history of Hodgkin lymphoma; Z92.21 Personal history of antineoplastic chemotherapy; Z92.3 Personal history of irradiation; Z88.6 Allergy status to analgesic agent; Z88.8 Allergy status to other drugs, medicaments and biological substances; Z91.048 Other nonmedicinal substance allergy status; Z79.899 Other long term (current) drug therapy; Z90.710 Acquired absence of both cervix and uterus; Z98.890 Other specified postprocedural states
CPT/HCPCS: 19303; 19340; 38525; 78195; A9270; A9541; C1762; C1789; J0690; J1100; J1170; J1580; J2250; J2270; J2405; J3010; J7120; 00402; 88309; 88331; J0171; J2704

== ENCOUNTER 2017-01-03 09:32 | Day surgery (SDC) | payer BC, OTHER ==
[~2017-01-03 09:32] MED LIST changes: +EPINEPHrine 1 MG/ML SDV ONE; +Gentamicin 40 MG/ML 2 ML Vial ONE; +Midazolam 1 MG/ML 2 ML SDV ONE; +Ondansetron 4 MG/2 ML SDV ONE; +Propofol 200 MG/20 ML SDV ONE; +ceFAZolin 1 GM Vial ONE; +fentaNYL 100 MCG/2 ML SDV ONE
[2017-01-03] MEDS ORDERED: Bupivacaine 0.25%/EPINEPHrine 1:200,000 10 ML SDV INJECT ONE (09:39)
[2017-01-03] MEDS ORDERED: ceFAZolin 1 GM in Premix Bag 1 BAG IV ONE (09:39)
--- NOTE | 2017-01-03 09:39 | PCM.PREANE ---
Preanesthetic Assessment - Procedure Proposed Procedure: Re-excision of Breast Margin - Anesthesia/Transfusion/Family Hx Anesthesia History: Prior Anesthesia Without Reaction Family History of Anesthesia Reaction: No Transfusion History: Prior Transfusion Without Reaction - Review of Systems General: No Symptoms Pulmonary: No Symptoms Cardiovascular: No Symptoms Gastrointestinal: No Symptoms Neurological: No Symptoms Other: Reports: None - Physical Assessment NPO Status Date: 01/03/17 NPO Status Time: 23:00 Height: 1.63 m Weight: 63.049 kg ASA Class: 2 Mental Status: Alert & Oriented x3 Airway Class: Mallampati = 2 Dentition: Reports: Normal Dentition Thyro-Mental Finger Breadths: 3 ROM/Head Extension: Full Lungs: Clear to Auscultation, Normal Respiratory Effort Cardiovascular: Regular Rate, Regular Rhythm - Allergies Allergies/Adverse Reactions: Allergies Allergy/AdvReac Type Severity Reaction Status Date / Time iodine Allergy Hives Verified 12/29/16 15:28 latex Allergy Irritabilit Verified 12/29/16 15:28 y naproxen Allergy Edema Verified 12/29/16 15:28 - Acknowledgements Anesthesia Type Planned: General Anesthesia Pt an Appropriate Candidate for the Planned Anesthesia: Yes Alternatives and Risks of Anesthesia Discussed w Pt/Guardian: Yes Pt/Guardian Understands and Agrees with Anesthesia Plan: Yes PreAnesthesia Questionnaire HEENT History: Reports: Allergic Rhinitis, Other (See Below) Other HEENT History: wears glasses Cardiovascular History: Reports: None Respiratory History: Reports: Asthma, Pneumothorax Other Respiratory History: hx spontaneous pneumothorax Gastrointestinal History: Reports: None Genitourinary History: Reports: None FUR VAULT ATTENDANT History: Reports: Fibroids, Musculoskeletal History: Reports: None Neurological History: Reports: Concussion, Migraines Psychiatric History: Reports: None Endocrine/Metabolic History: Reports: Hypothyroidism Hematologic History: Reports: Anemia, Blood Transfusion(s) Immunologic History: Oncologic (Cancer) History: Reports: Breast, Hodgkin's Lymphoma, Other (See Below) Other Oncologic History: chemo for hodgkins lymphoma in 2005 Dermatologic History: Reports: None - Infectious Disease History Infectious Disease History: Reports: Chicken Pox, Shingles - Past Surgical History Head Surgeries/Procedures: Reports: None HEENT Surgical History: Reports: None Cardiovascular Surgical History: Reports: None Female Surgical History: Reports: Breast Biopsy, Breast Implant, Section, Mastectomy Other Female Surgeries/Procedures: laparoscopy x3 for removal of uterine fibroids Musculoskeletal Surgical History: Reports: None - SUBSTANCE USE Smoking Status *Q: Current Every Day Smoker Tobacco Use Within Last Twelve Months: Cigarettes Second Hand Smoke Exposure: Yes Days Per Week of Alcohol Use: 7 Number of Drinks Per Day: 2 Total Drinks Per Week: 14 Recreational Drug Use History: No - HOME MEDS Home Medications: Home Meds Levothyroxine 50 mcg PO DAILY 08/26/13 [History] Cromolyn Sodium [Nasalcrom] 2 spray NASBOTH DAILY 12/11/16 [History] Loratadine/Pseudoephedrine [Wal-Itin D 12 Hour Tablet] 10 mg PO DAILY 12/11/16 [ History] Olopatadine [Patanol 0.1% Ophth Soln] 1 drop EYEBOTH DAILY 12/11/16 [History] Simethicone [Gas Relief] 180 mg PO ASDIRECTED PRN 12/11/16 [History] Acetaminophen/HYDROcodone [[place] 325-5 MG] 1 tab PO Q4H PRN #30 tablet 12/16/16 [Rx] - CURRENT (IN HOUSE) MEDS Current Meds: Current Medications Lactated Ringer's (Ringers, Lactated) 1,000 mls @ 125 mls/hr IV ASDIRECTED [facility] Discontinued Medications Bacitracin (Bacitracin) Confirm Administered Dose 50,000 units .ROUTE .STK-MED ONE Stop: 01/03/17 09:33 Cefazolin Sodium (Ancef) Confirm Administered Dose 1 gm .ROUTE .STK-MED ONE Stop: 01/03/17 09:33 Epinephrine HCl (Adrenalin 1:1000) Confirm Administered Dose 1 mg .ROUTE .STK- MED ONE Stop: 01/03/17 09:33 Fentanyl (Sublimaze) Confirm Administered Dose 200 mcg .ROUTE .STK-MED ONE Stop: 01/03/17 09:07 Gentamicin Sulfate (Gentamicin) Confirm Administered Dose 80 mg .ROUTE .STK-MED ONE Stop: 01/03/17 09:33 Cefazolin Sodium/Dextrose (Ancef) Confirm Administered Dose 50 mls @ as directed .ROUTE .STK-MED ONE Stop: 01/03/17 09:09 Midazolam HCl (Versed 1 Mg/Ml) Confirm Administered Dose 2 mg .ROUTE .STK-MED ONE Stop: 01/03/17 09:08 Ondansetron HCl (Zofran) Confirm Administered Dose 4 mg .ROUTE .STK-MED ONE Stop: 01/03/17 09:07 Propofol (Diprivan 20 Ml) Confirm Administered Dose 200 mg .ROUTE .STK-MED ONE Stop: 01/03/17 09:07
[2017-01-03] MEDS ORDERED: fentaNYL 100 MCG/2 ML SDV IVPUSH PRN (10:28)
[2017-01-03] MEDS ORDERED: Dexamethasone 4 MG/ML 5 ML MDV ONE (10:56)
--- NOTE | 2017-01-03 11:40 | PCM.OPNOTE ---
- General Post-Op/Procedure Note Date of Surgery/Procedure: 01/03/17 Operative Procedure(s): reecision of right breast margin for positive pathology margin Pre Op Diagnosis: positive pathology margin for right breast cancer excision Post-Op Diagnosis: Same Anesthesia Technique: General LMA, Local Primary Surgeon: Susi Fontanez Strap Buckler Machine: Meghan Marques Complications: None Condition: Good
--- NOTE | 2017-01-03 11:59 | PCM.POSTAN ---
POST ANESTHESIA ASSESSMENT - MENTAL STATUS Mental Status: Alert, Oriented - RESPIRATORY Respiratory Status: Respiratory Rate WNL, Airway Patent, O2 Saturation Stable - CARDIOVASCULAR CV Status: Pulse Rate WNL, Blood Pressure Stable - GASTROINTESTINAL GI Status: No Symptoms - PAIN Pain Score: 3 - POST OP HYDRATION Hydration Status: Adequate & Stable
[2017-01-03] MEDS ORDERED: diphenhydrAMINE 50 MG/ML SDV ONE (12:08)
[2017-01-03] MEDS ORDERED: Acetaminophen/HYDROcodone 325-5 MG Tab ONE (12:09)
[2017-01-03 12:41] VITALS: BP 137/68
--- NOTE | 2017-01-03 14:21 | PCM48HPAN ---
Post Anesthesia Note - EVALUATION WITHIN 48HRS OF ANESTHETIC Vital Signs in Normal Range: Yes Patient Participated in Evaluation: Yes Respiratory Function Stable: Yes Airway Patent: Yes Cardiovascular Function Stable: Yes Hydration Status Stable: Yes Pain Control Satisfactory: Yes Nausea and Vomiting Control Satisfactory: Yes Mental Status Recovered: Yes
--- NOTE | 2017-01-04 11:36 | OR ---
SURGEON: GORDON ESTRADA MD DATE OF PROCEDURE: 01/03/2017 PREOPERATIVE DIAGNOSIS: Positive pathology margin for right breast cancer. POSTOPERATIVE DIAGNOSIS: Positive pathology margin for right breast cancer. PROCEDURE: Re-excision of right breast margin for positive pathology. ASSEMBLER CARDS AND ANNOUNCEMENTS: HOLLAND Boogie ANESTHESIA: General LMA with local anesthesia. INDICATIONS: Ms. Barbosa is a 51-year-old female seen today in evaluation for a right breast positive margin on pathology. Risks and benefits of excision were discussed with her and she was in agreement to proceed. Risks were including, but not limited to, bleeding, infection, damage to underlying or overlying structures, possible need for future interventions, possible scarring. We discussed the underlying implant and AlloMax, and we will leave these in place given the time frame. We will excise margins and discuss copious irrigation and treatment. She understands and would like to proceed. PROCEDURE IN DETAIL: After informed consent was obtained and placed on the chart, the patient was brought to the operating theater and laid in supine position. After adequate general anesthetic was obtained, the area was prepped and draped and a time-out was completed to confirm side and site. After adequately prepped and draped, attention was paid to the previous incision and the scar itself was excised and sent for pathology. Once adequately excised , the underlying breast tissue was exposed and evaluated and the cuff of tissue from the inferior 6 o'clock margin of the breast to the 11 o'clock margin of the breast was excised , including the nearest touching cuff of the allomax to the tissue. The specimen was in two pieces (above and below the skin incisions) and was marked at the new 11 o'clock and new 8 o'clock margin, stamped with a marker on the previous margin and then sent for pathology and mammography. It was taken personally to the pathologist to discuss orientation at the end of the case. Mammography was completed and no additional findings were appreciated on the mammogram. Once adequately excised and meticulous hemostasis was obtained, the area was copiously irrigated and the margin of the AlloMax that had been incontinuity are close to the tissue margins was evaluated and excised of any touching margin. The AlloMax was then redraped and the implant and AlloMax were copiously irrigated with 1 L of triple antibiotic solution and 1 L of normal saline. Once this was completed and meticulous hemostasis had been obtained, the AlloMax was redraped and sutured again in place to the inframammary fold tissue margins. Once this was completed, the skin was then closed with deep 3-0 Monocryl interrupted dermal and a running 4-0 Monocryl for the skin. It was dressed with Steri-Strips. A compression dressing was placed. She tolerated this well. All counts and needles were correct at the end of the case. FOLLOWUP INSTRUCTIONS: The patient will see us tomorrow in clinic or sooner if any problems, questions, or concerns. ARTIS / SINGH /[id number] [place]
== END 2017-01-03 13:05 | disposition home or self-care (01) ==
LOC: MW.SDS 09:32
PROVIDERS: ATTEND Plastic Surgery
DX: N60.11 Diffuse cystic mastopathy of right breast (principal); L90.5 Scar conditions and fibrosis of skin; E03.9 Hypothyroidism, unspecified; J45.909 Unspecified asthma, uncomplicated; F17.210 Nicotine dependence, cigarettes, uncomplicated; Z92.3 Personal history of irradiation; Z85.71 Personal history of Hodgkin lymphoma; Z85.3 Personal history of malignant neoplasm of breast; Z92.21 Personal history of antineoplastic chemotherapy; Z79.899 Other long term (current) drug therapy; Z88.8 Allergy status to other drugs, medicaments and biological substances; Z91.048 Other nonmedicinal substance allergy status; Z91.040 Latex allergy status; Z90.10 Acquired absence of unspecified breast and nipple; Z98.890 Other specified postprocedural states
CPT/HCPCS: 19120; A9270; J0690; J1100; J1200; J1580; J2250; J2405; J3010; J7120; 00400; 88305; J0171; J2704

== ENCOUNTER 2017-03-18 10:56 | Emergency (ER) | payer BC, OTHER ==
--- NOTE | 2017-03-18 11:24 | EDM.PDOC ---
ED HPI GENERAL MEDICAL PROBLEM - General Chief Complaint: Upper Extremity Injury/Pain Stated Complaint: LEFT HAND PAIN Time Seen by Provider: 03/18/17 11:05 - History of Present Illness INITIAL COMMENTS - FREE TEXT/NARRATIVE: HISTORY AND PHYSICAL: History of present illness: Patient's 52-year-old white female presents with concern of acute left hand injury occurred last night when she dropped a box on her hand he denies other trauma or concern Review of systems: As per history of present illness and below otherwise all systems reviewed and negative. Past medical history: As per history of present illness and as reviewed below otherwise noncontributory. Surgical history: As per history of present illness and as reviewed below otherwise noncontributory. Social history: No reported history of drug or alcohol abuse. Family history: As per history of present illness and as reviewed below otherwise noncontributory. Physical exam: HEENT: Atraumatic, normocephalic, pupils reactive, negative for conjunctival pallor or scleral icterus, mucous membranes moist, throat clear, neck supple, nontender, trachea midline. Lungs: Clear to auscultation, breath sounds equal bilaterally, chest nontender. Heart: S1S2, regular, negative for clicks, rubs, or JVD. Abdomen: Soft, nondistended, nontender. Negative for masses or hepatosplenomegaly. Negative for costovertebral tenderness. Pelvis: Stable nontender. Genitourinary: Deferred. Rectal: Deferred. Extremities: Patient has tenderness over the dorsal aspect of her left hand is no gross deformity C mesentery neurovascular is unremarkable Neuro: Awake, alert, oriented. Cranial nerves II through XII unremarkable. Cerebellum unremarkable. Motor and sensory unremarkable throughout. Exam nonfocal. Diagnostics: X-ray left hand Therapeutics: Michele wrap Impression: #1 acute left hand injury (blunt force trauma) Definitive disposition and diagnosis as appropriate pending reevaluation and review of above. left hand Pain Score (Numeric/FACES): 7 - Related Data Allergies Allergy/AdvReac Type Severity Reaction Status Date / Time iodine Allergy Hives Verified 03/18/17 11:15 latex Allergy Irritabilit Verified 03/18/17 11:15 y naproxen Allergy Edema Verified 03/18/17 11:15 Home Meds: Home Meds Levothyroxine 50 mcg PO DAILY 08/26/13 [History] Past Medical History HEENT History: Reports: Allergic Rhinitis, Other (See Below) Other HEENT History: wears glasses Cardiovascular History: Reports: None Respiratory History: Reports: Asthma, Pneumothorax Other Respiratory History: hx spontaneous pneumothorax Gastrointestinal History: Reports: None Genitourinary History: Reports: None ANALYTICS ARCHITECT History: Reports: Fibroids, Musculoskeletal History: Reports: None Neurological History: Reports: Concussion, Migraines Psychiatric History: Reports: None Endocrine/Metabolic History: Reports: Hypothyroidism Hematologic History: Reports: Anemia, Blood Transfusion(s) Immunologic History: Oncologic (Cancer) History: Reports: Breast, Hodgkin's Lymphoma, Other (See Below) Other Oncologic History: chemo for hodgkins lymphoma in 2005 Dermatologic History: Reports: None - Infectious Disease History Infectious Disease History: Reports: Chicken Pox, Shingles - Past Surgical History Head Surgeries/Procedures: Reports: None HEENT Surgical History: Reports: None Cardiovascular Surgical History: Reports: None Female Surgical History: Reports: Breast Biopsy, Breast Implant, Section, Mastectomy Other Female Surgeries/Procedures: laparoscopy x3 for removal of uterine fibroids Musculoskeletal Surgical History: Reports: None Social & Family History - Tobacco Use Smoking Status *Q: Current Every Day Smoker Years of Tobacco use: 37 Packs/Tins Daily: 1 Second Hand Smoke Exposure: Yes - Caffeine Use Caffeine Use: Reports: Coffee - Alcohol Use Days Per Week of Alcohol Use: 7 Number of Drinks Per Day: 2 Total Drinks Per Week: 14 - Recreational Drug Use Recreational Drug Use: No Drug Use in Last 12 Months: No Review of Systems - Review of Systems Review Of Systems: ROS reveals no pertinent complaints other than HPI. ED EXAM, GENERAL - Physical Exam Exam: See Below (See dictation) Course - Vital Signs Last Recorded V/S: Last Vital Signs Temp 36.4 C 03/18/17 10:56 Pulse 71 03/18/17 12:25 Resp 18 03/18/17 12:25 BP 106/64 03/18/17 12:25 Pulse Ox 99 03/18/17 12:25 Departure - Departure Time of Disposition: 19:21 Disposition: Home, Self-Care 01 Condition: Good Clinical Impression: Hand injury - Discharge Information Instructions: Wrist Pain Referrals: PCP,Unknown [Primary Care Provider] - Forms: ED Department Discharge
[2017-03-18 12:30] VITALS: BP 106/64
--- NOTE | 2017-03-19 16:46 | CR ---
EXAM DATE: 03/18/17 PATIENT'S AGE: 52 Patient: JOSEF DELACRUZ Facility: [place], [place] Site . Site : 1965 Study: XRay Extremity Left -03/18/2017 12:17:12 PM Ordering Physician: Shawna Adams Final Report: INDICATION: Injury. Technique: Three views of the left hand. Findings: No acute fracture or dislocation. Joint spaces are maintained. Soft tissues are unremarkable. Impression: Negative left hand. Dictated by Jorge A Garcia MD @ Mar 18 2017 12:39PM (Electronic Signature) Report Signed by Proxy. SOCRATES
== END 2017-03-18 12:24 | disposition home or self-care (01) ==
LOC: MW.ED 10:56
DX: S69.92XA Unspecified injury of left wrist, hand and finger(s), initial encounter (principal); F17.210 Nicotine dependence, cigarettes, uncomplicated; Z91.040 Latex allergy status; Z88.5 Allergy status to narcotic agent; W20.8XXA Other cause of strike by thrown, projected or falling object, initial encounter
CPT/HCPCS: 73120-26-LT; 73120-LT; 99282; 99283